=== PATIENT | female | born 1985 | race Caucasian/White ===

== ENCOUNTER 2018-07-24 15:13 | Inpatient (IN) | payer BC, OTHER ==
--- NOTE | 2018-07-24 20:03 | PDOC.LDHP ---
Labor and Delivery H&P Chief complaint: scheduled induction HPI: 32 yo @38w3d by 6 week CRL who presents for IOL due to CHTN. Pt controlled with Procardia XL 30 mg QD. Possible FGR also noted on sono on 07/24/18 (EFW 9%) . Current gestational age (weeks): 38 Due date: 08/05/18 Dating criteria: first trimester ultrasound Grav: 2 Para: 1 OB History Details: x1 Current complications: hypertension, IUGR Abnormal US findings: No Past Medical History: CHTN Current medications: pre-cheryl vitamins, other (ASA 81 mg) Previous surgical history: none Allergies/Adverse Reactions: Allergies Allergy/AdvReac Type Severity Reaction Status Date / Time No Known Allergies Allergy Verified 07/25/18 06:43 Social history: none - Physical Exam Abnormal vital signs: BPs mild range General: NAD Heart: RRR Lungs: nonlabored breathing Abdomen: gravid Extremeties: no edema FHT: category 1 (120s, mod fritz, +accels, no decels) [place] contractions every: irregular on tracing - Vaginal Exam cm dilated: 4 (cephalic, AROM clear ) Effacement: 75% Station: -2 - OB Labs Blood type: B RH: positive Antibody Screen: negative HIV: negative RPR: negative HEPSAg: negative 1 hour GCT: positive 3 hour GTT: wnl GBS: negative Urine drug screen: negative Rubella: immune - Assessment 38w3d IUP CHTN ? FGR - Plan Plan: admit to L&D, informed consent obtained, anesthesia consult for pain management -: Start pitocin for IOL Monitor BPs. PreE labs ordered.
[2018-07-25] MEDS ORDERED: NS w/ Oxytocin 10 units 500 ML IV SCH (06:31)
[2018-07-25] MEDS ORDERED: Ibuprofen 800 MG TAB PO PRN (06:31)
[2018-07-25] MEDS ORDERED: HYDROcodone/Acetaminophen 5/325 mg Tablet PO PRN ×2 (06:31→13:46)
[2018-07-25] MEDS ORDERED: Diphenoxylate HCl/Atropine Tablet PO PRN (06:31)
[2018-07-25] MEDS ORDERED: Butorphanol Tartrate 1 MG/ML VIAL SLOW IVP PRN (06:31)
[2018-07-25] MEDS ORDERED: Promethazine HCl 25 MG/ML VIAL IM PRN ×2 (06:31→08:18)
[2018-07-25] MEDS ORDERED: Lactated Ringer's 1,000 ML IV SCH (06:31)
[2018-07-25] MEDS ORDERED: Acetaminophen 500 MG TAB PO PRN (06:31)
[2018-07-25] MEDS ORDERED: Misoprostol 200 MCG TAB PR PRN (06:31)
[2018-07-25] MEDS ORDERED: Carboprost 250 MCG/ML AMP IM PRN (06:31)
[2018-07-25] MEDS ORDERED: Lidocaine 1% (PF) 30 ML VIAL SC PRN (06:31)
[2018-07-25] MEDS ORDERED: Ondansetron PF 4 MG/2 ML Vial IVP PRN ×2 (06:31→08:18)
[2018-07-25] MEDS ORDERED: NS / Oxytocin 40 units/1000ml 1,000 ML IV PRN (06:31)
[2018-07-25 06:48] VITALS: BMI 29.3
[2018-07-25] MEDS ORDERED: NS w/ Oxytocin 10 units 500 ML ONE (07:29)
[2018-07-25 07:34] LABS: Hemoglobin 12.9 g/dL (12.0-16.0); Mean Corpuscular HGB CONC 34.6 g/dL (32.0-36.0); Mean Corpuscular Hemoglobin 32.2 pg (27.0-31.0); Mean Corpuscular Volume 93.1 fL (78.0-98.0); Mean Platelet Volume 10.5 fL (7.4-10.4); Platelet Count 146 thou/uL (130-400); RBC Distribution Width 11.1 % (11.5-14.5); White Blood Cell (WBC) Count 8.3 thou/uL (4.8-10.8)
[2018-07-25] MEDS ORDERED: Fentanyl 4 mcg/Bup 0.1% Cadd 100 ML ONE (07:40)
[2018-07-25 07:51] LABS: ALT (SGPT) 10 U/L (8-55); AST (SGOT) 13 U/L (5-34); Albumin 3.5 g/dL (3.5-5.0); Alkaline Phosphatase 144 U/L (40-150); Anion Gap 16 mmol/L (10-20); BUN (Urea Nitrogen) 17 mg/dL (7.0-18.7); Bilirubin, Total 0.3 mg/dL (0.2-1.2); Calc. Creatinine Clearance 129 mL/min (70-130); Calcium 9.2 mg/dL (7.8-10.44); Carbon Dioxide 19 mmol/L (22-29); Chloride 109 mmol/L (98-107); Estimated GFR-MDRD 87; Globulin 2.6 g/dL (2.4-3.5); Glucose 110 mg/dL (70-105); Potassium 4.2 mmol/L (3.5-5.1); Protein, Total 6.1 g/dL (6.0-8.3); Sodium 140 mmol/L (136-145)
[2018-07-25 08:08] LABS: Syphilis Antibody Nonreactive (Nonreactive); Syphilis Antibody Index 0.03 S/CO (<1.00 Non-Reactive)
[2018-07-25 08:09] LABS: HBSAg Index 0.36 S/CO (0-0.99); HIV (1/2) Antibody/Antigen Non-Reactive (NonReactive); HIV 1/2 INDEX 0.11 S/CO (<1.00); Hep B Surf Ag Non-Reactive S/CO (NonReactive)
[2018-07-25] MEDS ORDERED: diphenhydrAMINE 50 MG/ML VIAL IVP PRN (08:18)
[2018-07-25] MEDS ORDERED: Naloxone HCl 0.4 mg/ml Vial IVP PRN ×2 (08:18)
[2018-07-25] MEDS ORDERED: ePHEDrine/0.9% NaCl/PF SYRINGE 50 mg/10 ml SLOW IVP PRN (08:18)
[2018-07-25] MEDS ORDERED: Acetaminophen 325 MG TAB PO PRN (08:18)
[2018-07-25] MEDS ORDERED: Eucerin (Mineral Oil/Petrolatum,White) 30 gm Jar TOP PRN (08:18)
[2018-07-25] MEDS ORDERED: Lactated Ringer's 500 ML IV PRN (08:18)
[2018-07-25] MEDS ORDERED: Communication Order-Pharmacy FS SCH (08:30)
[2018-07-25] MEDS ORDERED: Fentanyl 4 mcg/Bupivacaine 0.1% Cassette 100 ML EPIDURAL SCH (08:30)
[2018-07-25] MEDS ORDERED: Bupivacaine 0.25% HCL 30 ML VIAL ONE (09:00)
[2018-07-25 09:05] LABS: Bilirubin Negative (Negative); Blood, Urine Small (Negative); Clarity CLEAR (Clear); Glucose, Urine (Dipstick) Negative (Negative); Leukocyte Small (Negative); Nitrite Negative (Negative); Protein, Urine (Dipstick) Negative (Neg-Trace); Specific Gravity, Urine 1.018 (1.002-1.036); Urobilinogen 0.2 mg/dL (0.2-1.0); pH, Urine 6.5 (5.0-9.0)
[2018-07-25 09:10] LABS: Bacteria/HPF None Seen HPF (None Seen); Hyaline Casts/LPF 0-3 HYALINE CAST LPF (0-3 Hyaline); RBC/HPF 0-3 HPF (0-3); Squamous Epithelial 0-3 HPF (0-3)
--- NOTE | 2018-07-25 11:43 | PDOC.OPDEL ---
OB Operative/Delivery Note Delivery Dr/Surgeon: Bri Cavazos DO Pre-Delivery Diagnosis: medically indicated induction Procedure/Post Delivery Dx: spontaneous vaginal delivery Weeks gestation: 38 Anesthesia: epidural - Findings A Sex: female - 1 min: 9 - 5 min: 9 - Additional Findings/Plan Placenta delivered: spontaneous Repaired Obstetrical Laceration: other (small BL labial lacerations) Estimated blood loss: QBL 185 cc Compilations/Other Findings: Infant in cephalic presentation Nuchal cord x 1, true knot Clear amniotic fluid Normal appearing placenta Post delivery plan: routine recovery
[2018-07-25] MEDS ORDERED: hydrALAZINE 20 MG/ML VIAL ONE (12:48)
--- NOTE | 2018-07-25 12:49 | PDOC.EVN ---
Event Note - Event Note Event Note: Notified by RN of 2 severe range BPs. Denies preE sx. PreE labs wnl. Will give Hydralazine 5 mg IV now and monitor. If requires additional medication or develops sx will consider PP magnesium.
[2018-07-25] MEDS ORDERED: hydrALAZINE 20 MG/ML VIAL SLOW IVP SCH (13:00)
[2018-07-25] MEDS ORDERED: Bisacodyl 10 MG SUPP PR PRN (13:46)
[2018-07-25] MEDS ORDERED: NS / Oxytocin 40 units/1000ml 1,000 ML IV SCH (13:46)
[2018-07-25] MEDS ORDERED: Milk Of Magnesia 30 ML UDCUP PO PRN (13:46)
[2018-07-25] MEDS ORDERED: Benzocaine-Menthol 82.5 ML CAN TOP PRN (13:46)
[2018-07-25] MEDS: Ibuprofen 800 MG TAB PO SCH ×2 (15:12→21:59)
[2018-07-25] MEDS: NIFEdipine XL 30 MG TAB PO SCH (16:16)
[2018-07-25] MEDS: Docusate Calcium (SURFAK) 240 MG CAP PO SCH (22:00)
[2018-07-26] MEDS: Ibuprofen 800 MG TAB PO SCH ×2 (05:49→14:05)
[2018-07-26] MEDS: NIFEdipine XL 30 MG TAB PO SCH (05:50)
[2018-07-26 06:37] LABS: Hemoglobin 12.3 g/dL (12.0-16.0); Mean Corpuscular HGB CONC 34.1 g/dL (32.0-36.0); Mean Corpuscular Hemoglobin 32.6 pg (27.0-31.0); Mean Corpuscular Volume 95.6 fL (78.0-98.0); Mean Platelet Volume 10.4 fL (7.4-10.4); Platelet Count 124 thou/uL (130-400); RBC Distribution Width 11.4 % (11.5-14.5); Red Blood Cell (RBC) Count 3.77 mill/uL (4.20-5.40); White Blood Cell (WBC) Count 9.1 thou/uL (4.8-10.8)
[2018-07-26 08:10] VITALS: BP 139/79; TEMP 98.2
--- NOTE | 2018-07-26 08:28 | PDOC.PP ---
Post Progress Note Post Day #: 1 Subjective: No concerns. Minimal pain and lochia. Denies preE sx. BPs wnl. Formula feeding. PO intake tolerated: yes Flatus: yes Ambulation: yes Vital Signs (12 hours) Temp Pulse Resp BP BP Pulse Ox 07/26/18 08:08 98.2 F 61 20 139/79 98 07/26/18 05:50 56 L 144/82 H Weight Weight 171 lb - Physical Examination General: NAD Cardiovascular: RRR Respiratory: non-labored breathing Abdominal: no distention, appropriately TTP Fundus firm & at: below umbilicus Extremities: negative homans (B) Neurological: no gross focal deficits Psychiatric: A&Ox3, normal affect Result Diagrams: 07/26/18 06:03 07/25/18 07:20 Additional Labs: Post Labs Blood Type B POSITIVE 07/25/18 10:34 Hep Bs Antigen Non-Reactive S/CO (NonReactive) 07/25/18 07:20 (1) Chronic hypertension Code(s): I10 - ESSENTIAL (PRIMARY) HYPERTENSION Status: Acute (2) Vaginal delivery Code(s): O80 - ENCOUNTER FOR FULL-TERM UNCOMPLICATED DELIVERY Status: Acute - Assessment/Plan PPD1 VSSAF, only one episode of severe BP immediately after delivery, none since. Denies any preE sx and Bp controlled with maintenance procardia Plan for d/c home when infant approved, possibly this evening vs tomorrow.
[2018-07-26] MEDS ORDERED: Prenatal Vitamin 1 TAB PO SCH (09:00)
[2018-07-26] MEDS: Docusate Calcium (SURFAK) 240 MG CAP PO SCH (09:34)
== END 2018-07-26 14:50 | disposition home or self-care (01) | DRG 806 ==
LOC: L&D 07-25 06:25 → 3SW 07-25 13:56 → EDSTATUS 08-05 15:13
PROVIDERS: ADMIT Obstetrics & Gynecology; ATTEND Obstetrics & Gynecology
PROC: 10E0XZZ Delivery of Products of Conception, External Approach (ICD-10-PCS; principal; 2018-07-25)
PROC: 10907ZC Drainage of Amniotic Fluid, Therapeutic from Products of Conception, Via Natural or Artificial Opening (ICD-10-PCS; 2018-07-25)
PROC: 3E0P7VZ Introduction of Hormone into Female Reproductive, Via Natural or Artificial Opening (ICD-10-PCS; 2018-07-25)
PROC: 3E033VJ Introduction of Other Hormone into Peripheral Vein, Percutaneous Approach (ICD-10-PCS; 2018-07-25)
PROC: 0UQMXZZ Repair Vulva, External Approach (ICD-10-PCS; 2018-07-25)
DX: O10.02 Pre-existing essential hypertension complicating childbirth (principal); O71.4 Obstetric high vaginal laceration alone; Z37.0 Single live birth; O69.81X0 Labor and delivery complicated by cord around neck, without compression, not applicable or unspecified; Z3A.38 38 weeks gestation of pregnancy
CPT/HCPCS: 36415; 51702; 80053; 81001; 85027; 86780; 86850; 86900; 86901; 87340; 87389; J0360; J2590; S0020